=== PATIENT | male | born 1935 | race Caucasian/White ===

== ENCOUNTER 2018-05-07 08:17 | Inpatient (IN) | payer BC, MEDICARE ==
[~2018-05-07] VITALS: Ht 172.7 cm; Wt 93.6 kg
[~2018-05-07 08:17] MED LIST: AMLO-512 PO; ASPI81 PO; CINA30 PO; FOLI0.8T22 PO; GLUC1TAB21 PO; LISI-661 PO; LITH300T PO; PHOSLOC PO; SUCR500T PO; VALA500T38 PO
[2018-05-07] MEDS ORDERED: ATOR80TA PO (08:37)
[2018-05-07] MEDS ORDERED: CALC0.253 PO (08:38)
[2018-05-07 09:23] LABS: BASOPHILS % (AUTO) 0.6 % (0.0-2.0); EOSINOPHILS % (AUTO) 2.8 % (1.0-6.0); HEMATOCRIT 32.6 % (41-53); HEMOGLOBIN 11.3 g/dL (13.5-17.5); LYMPHOCYTES # (AUTO) 1.8 K/uL (1.0-4.8); LYMPHOCYTES % (AUTO) 15.3 % (22.0-44.0); MEAN CORPUSCULAR HEMOGLOBIN 31.5 pg (26.0-34.0); MEAN CORPUSCULAR HGB CONC 34.6 G/dL (31.0-37.0); MEAN CORPUSCULAR VOLUME 91 fL (80-100); MONOCYTES # (AUTO) 0.9 K/uL (0.1-1.0); MONOCYTES % (AUTO) 7.6 % (2.0-9.0); NEUTROPHILS # (AUTO) 8.9 K/uL (1.8-7.7); NEUTROPHILS % (AUTO) 73.7 % (40.0-70.0); PLATELET COUNT (AUTO) 198 K/uL (150-450); RED BLOOD CELL COUNT(AUTO) 3.58 MIL/uL (4.50-5.90); RED CELL DISTRIBUTION WIDTH 14.1 % (11.5-14.5)
[2018-05-07 09:32] LABS: ANION GAP 8 mmol/L (8-16); CALCIUM, TOTAL 9.6 mg/dL (8.8-10.5); CARBON DIOXIDE 29 mmol/L (22-29); CHLORIDE 95 mmol/L (98-107); CREATININE 6.27 mg/dL (0.60-1.30); GLOMERULAR FILTR. RATE CALC 9 mL/min (>60); GLUCOSE,RANDOM 121 mg/dL (70-110); POTASSIUM 4.7 mmol/L (3.5-5.1); SODIUM SERUM 132 mmol/L (136-145); UREA NITROGEN, BLOOD 45 mg/dL (7-18)
[2018-05-07 09:37] LABS: ALANINE AMINOTRANSFERASE 20 U/L (12-78); ALBUMIN 3.2 g/dL (3.4-5.0); ALKALINE PHOSPHATASE 123 U/L (46-116); ASPARTATE AMINOTRANSFERASE 16 U/L (15-37); BILIRUBIN,TOTAL 0.7 mg/dL (0.1-1.0); TOTAL PROTEIN, SERUM 7.1 g/dL (6.4-8.2)
[2018-05-07 09:50] LABS: LITHIUM 0.94 mmol/L (0.60-1.20)
[2018-05-07] MEDS ORDERED: ATOR40TA28 PO (11:59)
[2018-05-07] MEDS ORDERED: OLANZapine 5 MG TABLET PO ONE (12:00)
[2018-05-07] MEDS ORDERED: LITH450CRT PO (12:00)
[2018-05-07] MEDS ORDERED: LORazepam 1 MG TABLET PO ONE (12:00)
[2018-05-07] MEDS ORDERED: 0.9% SODIUM CHLORIDE 10 ML SYRINGE IVP PRN (12:30)
[2018-05-07] MEDS ORDERED: ACETAMINOPHEN 325 MG TABLET PO PRN ×2 (12:30→18:15)
[2018-05-07 16:01] VITALS: BP 160/87
[2018-05-07] MEDS: SEVELAMER CARBONATE 800 MG TABLET PO SCH (18:00)
[2018-05-07] MEDS: CINACALCET HCL 30 MG TABLET PO SCH (18:00)
[2018-05-07] MEDS: VITAMIN B COMP/VIT C/FOLIC ACID CAPSULE PO SCH (18:00)
[2018-05-07] MEDS ORDERED: HYDROCODONE/ACETAMINOPHEN 5-325 MG TABLET PO PRN (18:15)
[2018-05-07 20:05] VITALS: BP 169/94
[2018-05-07 21:30] LABS: ALBUMIN 3.2 g/dL (3.4-5.0); BILIRUBIN,TOTAL 0.6 mg/dL (0.1-1.0); CALCIUM, TOTAL 9.3 mg/dL (8.8-10.5); CREATININE 2.41 mg/dL (0.60-1.30); POTASSIUM 3.4 mmol/L (3.5-5.1); TOTAL PROTEIN, SERUM 7.1 g/dL (6.4-8.2)
[2018-05-07 23:12] VITALS: BP 141/70
[2018-05-08] MEDS: HEPARIN SODIUM,PORCINE 5,000 UNITS/ML VIAL SQ SCH ×3 (00:09→18:21)
[2018-05-08 03:45] VITALS: BP 139/81
[2018-05-08 06:37] LABS: BASOPHILS % (AUTO) 0.7 % (0.0-2.0); EOSINOPHILS % (AUTO) 4.5 % (1.0-6.0); HEMATOCRIT 31.3 % (41-53); HEMOGLOBIN 11.1 g/dL (13.5-17.5); LYMPHOCYTES # (AUTO) 1.6 K/uL (1.0-4.8); LYMPHOCYTES % (AUTO) 18.8 % (22.0-44.0); MEAN CORPUSCULAR HEMOGLOBIN 32.1 pg (26.0-34.0); MEAN CORPUSCULAR HGB CONC 35.5 G/dL (31.0-37.0); MEAN CORPUSCULAR VOLUME 91 fL (80-100); MONOCYTES # (AUTO) 0.9 K/uL (0.1-1.0); MONOCYTES % (AUTO) 9.9 % (2.0-9.0); NEUTROPHILS # (AUTO) 5.7 K/uL (1.8-7.7); NEUTROPHILS % (AUTO) 66.1 % (40.0-70.0); PLATELET COUNT (AUTO) 176 K/uL (150-450); RED BLOOD CELL COUNT(AUTO) 3.46 MIL/uL (4.50-5.90); RED CELL DISTRIBUTION WIDTH 13.6 % (11.5-14.5)
[2018-05-08 07:27] LABS: ALBUMIN 3.1 g/dL (3.4-5.0); BILIRUBIN,TOTAL 0.6 mg/dL (0.1-1.0); CALCIUM, TOTAL 9.4 mg/dL (8.8-10.5); CREATININE 4.18 mg/dL (0.60-1.30); POTASSIUM 3.9 mmol/L (3.5-5.1); TOTAL PROTEIN, SERUM 6.5 g/dL (6.4-8.2)
[2018-05-08] MEDS ORDERED: MISC MED-CONVERTED FROM AMBULATORY (Sucroferric Oxyhydroxide (Velphoro) 500 MG) PO SCH (08:00)
[2018-05-08] MEDS ORDERED: CINACALCET HCL 30 MG TABLET PO SCH (08:00)
[2018-05-08] MEDS: CALCIUM ACETATE 667 MG CAPSULE PO SCH ×5 (08:00→18:21)
[2018-05-08] MEDS ORDERED: LITHIUM CARBONATE 450 MG ER TABLET PO SCH (09:00)
[2018-05-08] MEDS ORDERED: [UNRECOGNIZED DRUG - OTHER] PO SCH (09:00)
[2018-05-08] MEDS ORDERED: LISINOPRIL 10 MG TABLET PO SCH (09:00)
[2018-05-08] MEDS: AmLODIPine BESYLATE 10 MG TABLET PO SCH (09:11)
[2018-05-08] MEDS: LISINOPRIL 10 MG TABLET PO SCH (09:11)
[2018-05-08] MEDS: ATORVASTATIN CALCIUM 40 MG TABLET PO SCH (09:12)
[2018-05-08] MEDS: VITAMIN B COMP/VIT C/FOLIC ACID CAPSULE PO SCH (09:12)
[2018-05-08] MEDS: ASPIRIN 81 MG CHEWABLE TABLET PO SCH (09:12)
[2018-05-08] MEDS: LANSOPRAZOLE 30 MG CAPSULE PO SCH (09:14)
[2018-05-08] MEDS: GLUCOSAMINE HCL/CHONDROITIN 500-400 MG TABLET PO SCH (09:14)
[2018-05-08] MEDS: SEVELAMER CARBONATE 800 MG TABLET PO SCH ×4 (09:14→18:21)
[2018-05-08] MEDS: CALCITRIOL 0.25 MCG CAPSULE PO SCH (09:15)
[2018-05-08] MEDS: ValACYclovir HCL 500 MG TABLET PO SCH (09:15)
[2018-05-08 12:42] VITALS: BP 154/96
[2018-05-08 15:35] VITALS: BP 134/74
[2018-05-08] MEDS ORDERED: RISP0.5T61 PO (17:11)
[2018-05-08] MEDS: CINACALCET HCL 30 MG TABLET PO SCH (18:21)
[2018-05-08 19:04] VITALS: BP 94/66
[2018-05-08] MEDS: RisperiDONE 0.5 MG TABLET PO SCH (19:50)
[2018-05-09] MEDS: HEPARIN SODIUM,PORCINE 5,000 UNITS/ML VIAL SQ SCH ×2 (00:10→08:27)
[2018-05-09 00:11] VITALS: BP 108/64
[2018-05-09 04:30] VITALS: BP 111/64
[2018-05-09 07:00] VITALS: BP 134/68
[2018-05-09] MEDS: VITAMIN B COMP/VIT C/FOLIC ACID CAPSULE PO SCH (08:27)
[2018-05-09] MEDS: SEVELAMER CARBONATE 800 MG TABLET PO SCH ×2 (08:27→12:10)
[2018-05-09] MEDS: ASPIRIN 81 MG CHEWABLE TABLET PO SCH (08:27)
[2018-05-09] MEDS: CALCIUM ACETATE 667 MG CAPSULE PO SCH ×2 (08:27→12:10)
[2018-05-09] MEDS: LANSOPRAZOLE 30 MG CAPSULE PO SCH (08:28)
[2018-05-09] MEDS: LISINOPRIL 10 MG TABLET PO SCH (08:28)
[2018-05-09] MEDS: ValACYclovir HCL 500 MG TABLET PO SCH (08:28)
[2018-05-09] MEDS: GLUCOSAMINE HCL/CHONDROITIN 500-400 MG TABLET PO SCH (08:28)
[2018-05-09] MEDS: RisperiDONE 0.5 MG TABLET PO SCH (08:28)
[2018-05-09] MEDS: CALCITRIOL 0.25 MCG CAPSULE PO SCH (08:28)
[2018-05-09] MEDS: ATORVASTATIN CALCIUM 40 MG TABLET PO SCH (08:28)
[2018-05-09] MEDS: AmLODIPine BESYLATE 10 MG TABLET PO SCH (08:28)
[2018-05-09 11:00] VITALS: BP 136/71
[2018-05-09] MEDS ORDERED: SEVE800PW PO ×2 (15:31→15:33)
== END 2018-05-09 17:10 | disposition home or self-care (01) | DRG 682 ==
LOC: EMS 08:19 → 6N 12:37
PROVIDERS: ADMIT Internal Medicine; ATTEND Internal Medicine
PROC: 5A1D70Z Performance of Urinary Filtration, Intermittent, Less than 6 Hours Per Day (ICD-10-PCS; principal; 2018-05-07)
DX: N17.9 Acute kidney failure, unspecified (principal); G93.40 Encephalopathy, unspecified; I12.0 Hypertensive chronic kidney disease with stage 5 chronic kidney disease or end stage renal disease; F23 Brief psychotic disorder; R45.851 Suicidal ideations; N18.6 End stage renal disease; N25.81 Secondary hyperparathyroidism of renal origin; R41.0 Disorientation, unspecified; E11.22 Type 2 diabetes mellitus with diabetic chronic kidney disease; F31.9 Bipolar disorder, unspecified; E78.5 Hyperlipidemia, unspecified; E83.39 Other disorders of phosphorus metabolism; F41.9 Anxiety disorder, unspecified; H91.90 Unspecified hearing loss, unspecified ear; M19.90 Unspecified osteoarthritis, unspecified site; Z87.891 Personal history of nicotine dependence; Z99.2 Dependence on renal dialysis; Z79.899 Other long term (current) drug therapy; Z79.82 Long term (current) use of aspirin; Z90.49 Acquired absence of other specified parts of digestive tract
CPT/HCPCS: 70450; 86704; 86706; 87081; 87340; 99285; G0480; J1644